=== PATIENT | male | born 1980 | race Caucasian/White ===

== ENCOUNTER 2019-10-17 01:47 | Outpatient (CLI) | payer OTHER, SELFPAY ==
--- NOTE | 2019-10-17 07:30 | DI.MRI_ITS ---
EXAM: MR BRAIN WO CLINICAL HISTORY: MS STABLE, NOT ON COPAXONE, G35 TECHNIQUE: Multiplanar multisequence MRI of the brain was performed. COMPARISON: MR MRI - BRAIN WO CONTRAST from 12/27/2015 MR MRI - BRAIN WO CONTRAST from 12/27/2015 FINDINGS: VENTRICLES AND EXTRA AXIAL SPACES: Normal in size and morphology for the patient's age. MIDLINE SHIFT: None. CEREBRAL PARENCHYMA: No focus of restricted diffusion to suggest acute infarct. No space-occupying le byron identified. There are again seen several foci of hyperintense signal on the FLAIR weighted image s. No definite new lesions are seen. However, there has been interval increase in size of a few of the lesions noted. The lesion adjacent to the lateral ventricle posteriorly now measures 7.5 mm comp ared with 5.0 mm. (Series 7001, image 16) HEMORRHAGE: None. BRAINSTEM/CEREBELLUM: Normal. CALVARIUM: Normal. VISUALIZED PARANASAL SINUSES/MASTOIDS:Mucosal thickening is seen in the right maxillary sinus. Remai kenneth sinuses are clear. No fluid levels are present. [place]: Normal flow void. PITUITARY GLAND: Unremarkable. OTHER FINDINGS: None. IMPRESSION: No new white matter lesions are identified. Interval increase in size of a few of the pre-existing l esions as described above. DATA REPOSITORY:
== END 2019-10-17 02:07 ==
PROVIDERS: PCP Family Medicine; Visit Provider Psychiatry & Neurology Neurology
DX: G35 Multiple sclerosis (principal)
CPT/HCPCS: 70551

== ENCOUNTER 2021-03-27 01:09 | Outpatient (CLI) | payer OTHER, SELFPAY ==
--- NOTE | 2021-03-27 07:45 | DI.MRI_ITS ---
Exam(s) MR BRAIN WO EXAM: MR BRAIN WO CLINICAL HISTORY: F/U MULTIPLE SCLEROSIS, G35 TECHNIQUE: Multiplanar multisequence MRI of the brain was performed. COMPARISON: MR MR BRAIN WO from 10/17/2019 FINDINGS: VENTRICLES AND EXTRA AXIAL SPACES: Normal in size and morphology for the patient's age. MIDLINE SHIFT: None. CEREBRAL PARENCHYMA: No focus of restricted diffusion to suggest acute infarct. No space-occupying le byron identified. The white matter lesions are stable compared to the prior examination. No new lesio ns are seen. HEMORRHAGE: None. BRAINSTEM/CEREBELLUM: Normal. CALVARIUM: Normal. VISUALIZED PARANASAL SINUSES/MASTOIDS:Clear. [place]: Normal flow void. PIT[place]ARY [place]AND: Unremarkable. OTHER FINDINGS: None. IMPRESSION: Stable white matter lesions since 10/16/2020. DATA REPOSITORY:
== END 2021-03-27 01:29 ==
PROVIDERS: Visit Provider Psychiatry & Neurology Neurology
DX: G35 Multiple sclerosis (principal)
CPT/HCPCS: 70551